=== PATIENT | male | born 1945 | race Caucasian/White ===

== ENCOUNTER 2022-09-09 12:32 | Emergency (ER) | payer MEDICARE, SELFPAY ==
[2022-09-09 12:40] VITALS: BP 153/76; PULSE 85; RESP 16; TEMP 36.7; O2SAT 97
[2022-09-09 13:18] VITALS: RESP 20
[2022-09-09 13:25] LABS: Abs Immature Grans 0.09 10^3/uL (0.0-0.06); Absolute Basophil Count 0.05 10^3/uL (0.0-0.2); Absolute Eosinophil Count 0.14 10^3/uL (0.0-0.7); Absolute Lymphocyte Count 2.57 10^3/uL (1.2-3.4); Absolute Monocyte Count 0.58 10^3/uL (0.1-0.8); Absolute Neutrophil Count 4.71 10^3/uL (1.2-6.7); Basophils % 0.6; Eosinophils % 1.7; HCT 37.3 % (40.0-50.0); HGB 11.9 g/dL (13.5-17.5); Immature Grans % 1.1; Lymphocytes % 31.6; MCH 26.4 pg (27.0-33.0); MCHC 31.9 % (32.0-36.0); MCV 83 fL (80-95); MPV 9.2 fL (8.0-11.0); Monocytes % 7.1; Neutrophils % 57.9; Platelet Count 364 10^3/uL (130-400); RDW 14.6 % (11.8-14.1); RDW-SD 43.9 fL; WBC 8.14 10^3/uL (4.4-10.8)
[2022-09-09 13:36] LABS: ALT 24 U/L (16-63); AST 14 U/L (15-37); Albumin 3.2 g/dL (3.4-5.0); Alkaline Phosphatase 65 U/L (46-116); Anion Gap 8.4 mmol/L (3-11); BUN 27 mg/dL (7-18); Bilirubin, Total 0.4 mg/dL (0.2-1.0); CO2 28.6 mmol/L (21.0-32.0); CREATININE 1.3 mg/dL (0.70-1.30); Calcium 9.2 mg/dL (8.5-10.1); Chloride 99 mmol/L (98-107); Estimated GFR 57.65 (mL/min/1.73m2); Glucose 133 mg/dL (74-106); Potassium 4.3 mmol/L (3.5-5.1); Sodium 136 mmol/L (136-145); Total Protein 8.1 g/dL (6.4-8.2)
--- NOTE | 2022-09-09 13:48 | ED.GENADUL_ITS ---
Discharge Plan Disposition Patient Disposition: Home Discharge Details Clinical Impression: Acute deep vein thrombosis (DVT) of right lower extremity Primary Care Provider: [place],Local ED Provider: Manish Oro Home Meds and New Rx's Prescriptions: No Action metformin 500 MG tablet 500 mg PO BID lisinopril 2.5 MG tablet 2.5 mg PO DAILY ciprofloxacin HCl 500 MG tablet 500 mg PO BID Qty: 14 0RF Eliquis 5 mg Tablet 5 mg PO BID aspirin [Aspir-81] 81 mg Tablet,Delayed Release (Dr/Ec) 81 mg PO DAILY PRN Discharge Instructions Instructions: Deep Vein Thrombosis (ED) Additional Instructions: Please increase your Eliquis to 10 mg twice daily until we can get the official ultrasound. At this time you have chosen to follow-up with [facility] which is appropriate as long as they can expedite ultrasound imaging. If you are unable to get an ultrasound by the tomorrow if you can be to the emergency department before 2 PM we will do our best to facilitate getting an emergent ultrasound here. You have any new or significant worsening of your symptoms feel free to return to the emergency department for reassessment otherwise follow-up with your primary care provider for recheck of symptoms preferably within the next 5 days. Referrals: [facility] [Outside] Medical Decision Making Patient presenting to the emergency department for chief complaint of right lower leg swelling for the last 2 days. Patient did have surgery 2 weeks ago and is on clindamycin. He does state he is due to see you the wound clinic tomorrow at [facility] but due to significant swelling is presenting to the emergency department. Patient states more pressure than pain and states this is due to the swelling. Patient denies all other symptoms including chest pain shortness of breath difficulty breathing. Patient does have history of A-fib, hypertension, diabetes. Patient is already on anticoagulant therapy but did have to stop for the surgery but started as recommended. Physical exam shows significant swelling to the right lower extremity with pitting edema from the knee down. This is unilateral with left lower extremity in walking boot but normal circumference per patient's report at baseline. I am concerned about potential DVT given recent surgery and patient off of his anticoagulant. Unfortunately we do not have ultrasound availability so plan will include to draw labs including D-dimer. At this time I do not feel that patient has cellulitis CHF or renal issue due to swelling being unilateral and no other associated symptoms. Review of patient's labs show a slight anemia with hemoglobin of 11.9 otherwise no infectious findings are noted on CBC, CMP shows elevated BUN of 27 glucose of 133 AST of 14 and albumin of 3.2. And an elevated D-dimer 1151. Discussed ultrasound imaging with patient and patient states due to having [facility] follow-up tomorrow he would prefer to have the ultrasound done there. Patient was en couraged if he is unable to receive ultrasound imaging there to return to the emergency department preferably before 2:00 tomorrow or during daytime hours to have ultrasound performed. As far as patient's Eliquis he is on 5 mg twice daily and we will have plan of additional coverage for patient with increasing patient's dose to 10 mg daily and obtaining official ultrasound. Patient is agreeable to this plan of care. After discussion of diagnosis and plan of care patient has no further needs, questions, or concerns and states clear understanding to return to the emergency department for any worsening symptoms. This documentation was generated using [employer] dictation system, please disregard any oddities of phrase or misspellings. Lab Data Lab results reviewed: Yes I reviewed the patient's lab results. HPI General Mode of arrival: ambulatory . Date/Time Provider Initiated Documentation: 09/09/22 12:49 . Limitations to Documentation: no limitations . Information obtained by: RN notes reviewed . History of Present Illness 76 year old M presents to the emergency department with the chief complaint of Right leg swelling, described as moderate, with intensity rated at 2. Quality is described as aching, and is localized to the right and lower extremity. Patient reports no radiation. Patient started experiencing this day(s) (2) and it has been constant. No relieving factors improve symptom(s), No exacerbating factors reported . Patient notes no other symptoms.. Patient did receive the following treatments prior to arrival, none Related Data Home Medications Medication Instructions Recorded Confirmed ciprofloxacin HCl 500 mg tablet 500 mg PO BID #14 tabs 10/14/12 lisinopril 2.5 mg tablet 2.5 mg PO DAILY 10/14/12 10/14/12 metformin 500 mg tablet 500 mg PO BID 10/14/12 10/14/12 apixaban 5 mg tablet (Eliquis) 5 mg PO BID 09/09/22 09/09/22 aspirin 81 mg tablet,delayed 81 mg PO DAILY PRN 09/09/22 09/09/22 release Previous Rx's Medication Instructions Recorded ciprofloxacin HCl 500 mg tablet 500 mg PO BID #14 tabs 10/14/12 Allergies Allergy/AdvReac Type Severity Reaction Status Date / Time ether Allergy Unknown Anaphylaxsi Unverified 10/14/12 10:30 s Penicillins Allergy Unknown Unverified 10/14/12 10:30 General Stated Complaint: GenMedical NASREEN: 3 Review of Systems Constitutional Constitutional: Denies chills and Denies fever(s) Cardiovascular Cardiovascular: Denies chest pain, Denies irregular heart rhythm, Denies dyspnea and Denies dyspnea on exertion Respiratory Respiratory: Denies dyspnea and Denies dyspnea on exertion Gastrointestinal Gastrointestinal: Denies abdominal pain Genitourinary Genitourinary: Denies oliguria Musculoskeletal Musculoskeletal: Reports as per HPI and Reports other (Right lower leg swelling) Integumentary/Breasts Skin/Breast: Reports skin swelling PFSH All Active Problems (Updated 09/09/22 @ 14:18 by Manish Oro NP) Acute deep vein thrombosis (DVT) of right lower extremity (Acute) A-fib (Chronic) Hypertension (Chronic) Diabetes (Chronic) Social History Smoking/Tobacco Use Status: Never Smoking risk assessment performed?: Yes Substance use type: marijuana Do you feel safe at home: Yes Do you feel safe in your relationship?: Yes Exam Const General: cooperative, no acute distress and not ill appearing Orientation: alert, awake and oriented x3 Resp Effort & Inspection: normal respiratory effort, able to speak in complete sentences and no respiratory distress Auscultation: clear to auscultation bilaterally Cardio Rate: regular rate Rhythm: regular rhythm Heart Sounds: S1 normal and S2 normal Skin General skin exam: no rashes or lesions noted Neuro General: patient alert, patient awake, patient oriented x3, moves all extremities and no focal motor deficits Sensory Exam: no sensory deficits noted Extrem General: edema Laterality: right (2+ pitting ) Right lower extremity: lower leg Details: tenderness and pitting edema Details: 2+; no erythema, no ecchymosis and no crepitus, ankle Details: edema and foot Details: edema and vascular exam Details: dorsalis pedis pulse present and normal capillary refill; no abrasion and no laceration Course Vital Signs Vital signs: Vital Signs Temperature 36.7 C 09/09/22 12:40 Pulse 85 09/09/22 12:40 Respiratory Rate 16 09/09/22 12:40 Blood Pressure 153/76 H 09/09/22 12:40 Pulse Oximetry 97 09/09/22 12:40 Temperature 36.7 C 09/09/22 12:40 Pulse 85 09/09/22 12:40 Respiratory Rate 20 09/09/22 13:18 Respiratory Effort Normal, Non-Labored 09/09/22 13:18 Respiratory Depth Normal 09/09/22 13:18 Respiratory Pattern Normal 09/09/22 13:18 Blood Pressure 153/76 H 09/09/22 12:40 Blood Pressure Position Sitting 09/09/22 12:40 Pulse Oximetry 97 09/09/22 12:40 Oxygen Delivery Method Room Air 09/09/22 12:40 Oxygen Flow Rate 0 09/09/22 12:40 Pain Level 2 09/09/22 12:40 Lab/Test Results Lab/Test Results: Laboratory Tests Range/Units 09/09/22 09/09/22 13:16 13:16 WBC (4.4-10.8) 10^3/uL 8.14 RBC (4.36-5.78) 10^6/uL 4.50 Hgb (13.5-17.5) g/dL 11.9 L Hct (40.0-50.0) % 37.3 L MCV (80-95) fL 83 MCH (27.0-33.0) pg 26.4 L MCHC (32.0-36.0) % 31.9 L RDW (11.8-14.1) % 14.6 H Plt Count (130-400) 10^3/uL 364 MPV (8.0-11.0) fL 9.2 Immature Gran % 1.1 Neutrophils % 57.9 Lymphocytes % 31.6 Monocytes % 7.1 Eosinophils % 1.7 Basophils % 0.6 Nucleated RBC % (0.0-0.3) % 0.0 Absolute Neutrophils (1.2-6.7) 10^3/uL 4.71 Absolute Lymphocytes (1.2-3.4) 10^3/uL 2.57 Absolute Monocytes (0.1-0.8) 10^3/uL 0.58 Absolute Eosinophils (0.0-0.7) 10^3/uL 0.14 Absolute Basophils (0.0-0.2) 10^3/uL 0.05 Sodium (136-145) mmol/L 136 Potassium (3.5-5.1) mmol/L 4.3 Chloride (98-107) mmol/L 99 Carbon Dioxide (21.0-32.0) mmol/L 28.6 Anion Gap (3-11) mmol/L 8.4 BUN (7-18) mg/dL 27 H Creatinine (0.70-1.30) mg/dL 1.3 Est GFR (CKD-EPI 2020) (mL/min/1.73m2) 57.65 Glucose (74-106) mg/dL 133 H Calcium (8.5-10.1) mg/dL 9.2 Total Bilirubin (0.2-1.0) mg/dL 0.4 AST (15-37) U/L 14 L ALT (16-63) U/L 24 Alkaline Phosphatase (46-116) U/L 65 Total Protein (6.4-8.2) g/dL 8.1 Albumin (3.4-5.0) g/dL 3.2 L PAWSS Have you Been Recently Intoxicated or Drunk Within the Last 30 days?: No Have you Ever Experienced Previous Episodes of Alcohol Withdrawal?: No Have you ever Experienced Withdrawal Seizures?: No Have you ever Experienced Delirium Tremens(DT)s?: No Have you ever undergone Alcohol Rehabilitation Treatment (i.e, inpt ot outpatient treatment programs)?: No Have you ever Experienced Blackouts?: No Have you ever Combined Alcohol with other Downers within the last 90 days?: No Have you ever Combined Alcohol with any other Substance of Abuse during the last 90 days?: No Positive Blood Alcohol level on Presentation? [PCS.BAL]: No Evidence of Increased Autonomic Activity (i.e. HR>120, tremor, sweating, agitation, nausea)?: No Result: 0
[2022-09-09 13:52] LABS: D-Dimer 1151 ng/mlFEU (<500)
[2022-09-09 14:38] VITALS: BP 130/64; PULSE 74; RESP 16; O2SAT 98
[2022-09-09] MEDS: Apixaban 5 MG TAB PO (14:40)
== END 2022-09-09 14:39 | disposition home or self-care (01) ==
PROVIDERS: Emergency Provider Nurse Practitioner Family
DX: I82.401 Acute embolism and thrombosis of unspecified deep veins of right lower extremity (principal); I10 Essential (primary) hypertension; E11.9 Type 2 diabetes mellitus without complications; I48.91 Unspecified atrial fibrillation; D64.9 Anemia, unspecified; R79.89 Other specified abnormal findings of blood chemistry; R79.1 Abnormal coagulation profile; Z79.01 Long term (current) use of anticoagulants
CPT/HCPCS: 80053; 99283; 85025; 85379; 99284

== ENCOUNTER 2022-09-10 14:09 | Emergency (ER) | payer MEDICARE, SELFPAY ==
--- NOTE | 2022-09-10 14:00 | DI.US_ITS ---
Exam(s) US LOWER EXTREMITY VENOUS RT EXAM: US LOWER EXTREMITY VENOUS RT CLINICAL HISTORY: pain, swelling TECHNIQUE: Grayscale, color, and doppler imaging of the deep venous system of the right lower extrem ity was performed. COMPARISON: No exams were available for comparison FINDINGS: There is no evidence of intraluminal thrombus and there is normal compression and augmentation demons trated within the common femoral vein, femoral vein, and popliteal vein. In the ipsilateral calf the interrogated veins also exhibit normal compression/ augmentation properti es. The ipsilateral saphenofemoral junction is patent. IMPRESSION: 1. No evidence of DVT in the right lower extremity. DATA REPOSITORY:
[2022-09-10 14:13] VITALS: BP 124/50; PULSE 75; RESP 18; TEMP 36.1; O2SAT 99
--- NOTE | 2022-09-10 14:23 | ED.GENADUL_ITS ---
Discharge Plan Disposition Patient Disposition: Home Discharge Details Clinical Impression: Peripheral edema Primary Care Provider: [place],Local ED Provider: Chelsey Greene Home Meds and New Rx's Prescriptions: New furosemide [Lasix] 20 mg tablet 20 mg PO DAILY Qty: 7 0RF Continued metformin 500 MG tablet 500 mg PO BID lisinopril 2.5 MG tablet 2.5 mg PO DAILY ciprofloxacin HCl 500 MG tablet 500 mg PO BID Qty: 14 0RF Eliquis 5 mg Tablet 10 mg PO BID aspirin 81 mg Tablet,Delayed Release (Dr/Ec) 81 mg PO DAILY PRN Discharge Instructions Additional Instructions: Return to taking her 5 mg of Eliquis daily Take the Lasix as prescribed Follow-up with your doctor for repeat ultrasound in 1 week with persistent swelling Return with spreading redness, fever, worsening pain, chest pain, shortness of breath Try to elevate your legs is much as possible and wear your compression stockings during the day Discharge Data Discharge Date/Time-TO BE ENTERED AT DEPARTURE: 09/10/22 16:24 Medical Decision Making <LC Montanez - Last Filed: 09/10/22 21:37> Patient is a pleasant 76-year-old gentleman with past medical history significant for atrial fibrillation, hypertension, diabetes, chronic current on left foot, presents today for reevaluation of right calf pain. Patient was seen here yesterday for the same. Yesterday there was concern for potential DVT and patient was advised to have ultrasound. Patient preferred to have this completed at [facility] today but was unable to have this completed secondary to scheduling today. Patient did increase his Eliquis from 5 mg twice daily to 10 mg twice daily. He has been taking this dosing as was recommended. He has not noted any change in his pain. States that pain is when he is ambulatory. States the pain does get better with rest. Indicates anterior aspect of the lower extremity as area of maximal discomfort. He denies any fevers or chills. Denies any shortness of breath or chest pain. On exam, patient appears nontoxic. Exam of the right lower extremity shows that it is enlarged compared to the contralateral side but both have 2+ pitting edema. I did review the labs from yesterday which was concerning for an elevated D-dimer of 1100. Also my differential would be CHF no associated lower extremity edema. He is not on any diuretics. We will obtain the ultrasound to have been previously recommended to evaluate for potential DVT. We also discussed obtaining labs, in particular BNP to evaluate this further. He would like to move forward with this rather than waiting until completion of the imaging study. At the end of my shift, care transition to Chelsey Greene PA-C, with labs and imaging pending. Patient hemodynamically stable and comfortable. <LC Ramos - Last Filed: 09/10/22 17:57> Patient is a pleasant 76-year-old gentleman with past medical history significant for atrial fibrillation, hypertension, diabetes, chronic current on left foot, presents today for reevaluation of right calf pain. Patient was seen here yesterday for the same. Yesterday there was concern for potential DVT and patient was advised to have ultrasound. Patient preferred to have this completed at [facility] today but was unable to have this completed secondary to scheduling today. Patient did increase his Eliquis from 5 mg twice daily to 10 mg twice daily. He has been taking this dosing as was recommended. He has not noted any change in his pain. States that pain is when he is ambulatory. States the pain does get better with rest. Indicates anterior aspect of the lower extremity as area of maximal discomfort. He denies any fevers or chills. Denies any shortness of breath or chest pain. On exam, patient appears nontoxic. Exam of the right lower extremity shows that it is enlarged compared to the contralateral side but both have 2+ pitting edema. I did review the labs from yesterday which was concerning for an elevated D-dimer of 1100. Also my differential would be CHF no associated lower extremity edema. He is not on any diuretics. We will obtain the ultrasound to have been previously recommended to evaluate for potential DVT. We also discussed obtaining labs, in particular BNP to evaluate this further. He would like to move forward with this rather than waiting until completion of the imaging study. At the end of my shift, care transition to Chelsey Greene PA-C, with labs and imaging pending. Patient hemodynamically stable and comfortable. LB: [facility] DVT extremity ultrasound does not show evidence of acute deep vein thrombosis Placed on 7 days of 20 mg of Lasix for significant peripheral edema without evidence of CHF, suspect peripheral vascular disease Repeat ultrasound in 1 week with persistent unilateral swelling recommended Emergent return with shortness of breath, chest discomfort, redness, or with any new or worsening complaints Discharged home in stable condition with stable vitals for prescription for 20 mg of Lasix Reviewed chemistry from yesterday without acute electrolyte abnormality HPI <LC Montanez - Last Filed: 09/10/22 21:37> General Date/Time Provider Initiated Documentation: 09/10/22 14:11 . Limitations to Documentation: no limitations . Information obtained by: patient, RN notes reviewed and old records reviewed . History of Present Illness 76 year old M presents to the emergency department with the chief complaint of right calf swelling, discomfort, described as moderate, Quality is described as aching, and is localized to the right and lower extremity. Patient reports no radiation. Patient started experiencing this day(s) and it has been constant. Immobilization improves symptom(s), Movement worsens symptoms (increased pain when standing on the leg) . Patient notes no other symptoms.. Patient did receive the following treatments prior to arrival, other (on Eliquis) Related Data Home Medications Medication Instructions Recorded Confirmed ciprofloxacin HCl 500 mg tablet 500 mg PO BID #14 tabs 10/14/12 09/10/22 lisinopril 2.5 mg tablet 2.5 mg PO DAILY 10/14/12 09/10/22 metformin 500 mg tablet 500 mg PO BID 10/14/12 09/10/22 apixaban 5 mg tablet (Eliquis) 10 mg PO BID 09/09/22 09/10/22 aspirin 81 mg tablet,delayed 81 mg PO DAILY PRN 09/09/22 09/10/22 release furosemide 20 mg tablet (Lasix) 20 mg PO DAILY #7 tabs 09/10/22 Previous Rx's Medication Instructions Recorded ciprofloxacin HCl 500 mg tablet 500 mg PO BID #14 tabs 10/14/12 furosemide 20 mg tablet (Lasix) 20 mg PO DAILY #7 tabs 09/10/22 Allergies Allergy/AdvReac Type Severity Reaction Status Date / Time ether Allergy Unknown Anaphylaxsi Unverified 09/10/22 14:12 s Penicillins Allergy Unknown Unverified 09/10/22 14:12 General Stated Complaint: Vascular NASREEN: 4 Review of Systems <LC Montanez - Last Filed: 09/10/22 21:37> Constitutional Constitutional: Reports as per HPI, Denies chills, Denies fever(s) and Denies weakness Cardiovascular Cardiovascular: Reports as per HPI, Denies chest pain and Denies dyspnea Respiratory Respiratory: Reports as per HPI, Denies cough and Denies dyspnea Musculoskeletal Musculoskeletal: Reports as per HPI and Denies tingling Integumentary/Breasts Skin/Breast: Reports as per HPI Neurologic Neurologic: Reports as per HPI, Denies tingling, Denies paresthesias and Denies weakness [facility] <LC Montanez - Last Filed: 09/10/22 21:37> All Active Problems (Updated 09/10/22 @ 16:12 by LC Ramos) Acute deep vein thrombosis (DVT) of right lower extremity (Acute) Peripheral edema (Acute) A-fib (Chronic) Hypertension (Chronic) Diabetes (Chronic) Social History Smoking/Tobacco Use Status: Never Smoking risk assessment performed?: Yes Substance use type: marijuana Do you feel safe at home: Yes Do you feel safe in your relationship?: Yes Exam <LC Montanez - Last Filed: 09/10/22 21:37> Const General: cooperative, healthy appearing, comfortable, no acute distress, well d eveloped and well groomed Nutritional Appearance: well nourished and overweight Orientation: alert and awake Resp Effort & Inspection: normal respiratory effort, able to speak in complete sentences and no respiratory distress Cardio Rate: regular rate Rhythm: regular rhythm Skin General skin exam: no rashes or lesions noted (wound on LLE was dressed/coverd by wound care at today) Lesions: no lesions Rashes: no rashes Trauma: no lacerations or abrasions Neuro General: patient alert and patient awake Cognition: normal cognition Speech: speech normal Gait: normal gait and gait assisted Method: other (cane) Motor: muscle tone normal throughout Sensory Exam: no sensory deficits noted Extrem General: capillary refill normal, no joint enlargement, calf tenderness on the right (pain primarily anterior), edema Laterality: bilateral (2+ pitting edema) and other (right calf 1inch larger in diameter compare to left) Course <LC Montanez - Last Filed: 09/10/22 21:37> Vital Signs Vital signs: Vital Signs Temperature 36.1 C L 09/10/22 14:13 Pulse 75 04/03/23 14:13 Respiratory Rate 18 09/10/22 14:13 Blood Pressure 124/50 L 09/10/22 14:13 Pulse Oximetry 99 09/10/22 14:13 Temperature 36.1 C L 09/10/22 14:13 Temperature Source Tympanic 09/10/22 14:13 Pulse 75 09/10/22 14:13 Respiratory Rate 18 09/10/22 14:13 Respiratory Effort Normal, Non-Labored 09/10/22 14:12 Blood Pressure 124/50 L 09/10/22 14:13 Pulse Oximetry 99 09/10/22 14:13 Oxygen Delivery Method Room Air 09/10/22 14:13 Oxygen Flow Rate 0 09/10/22 14:13 Sign Out <LC Montanez - Last Filed: 09/10/22 21:37> Sign Out Data: Sign Out Comment: Care transition to Chelsey Greene PA-C. Patient here with right calf pain, ultrasound for DVT pending as is BNP for possible CHF. Plan for discharged home. If DVT is present patient will need evaluation for optimal anticoagulation as he is already on 5 mg of Eliquis twice daily, increased yesterday by Bartolo Oro to 10 mg of Eliquis twice daily. If more CHF, would consider diuretic Last updated by Anusha Rebollar PA at 09/10/22 15:43 PAWSS <LC Montanez - Last Filed: 09/10/22 21:37> Have you Been Recently Intoxicated or Drunk Within the Last 30 days?: No Have you Ever Experienced Previous Episodes of Alcohol Withdrawal?: No Have you ever Experienced Withdrawal Seizures?: No Have you ever Experienced Delirium Tremens(DT)s?: No Have you ever undergone Alcohol Rehabilitation Treatment (i.e, inpt ot outpatient treatment programs)?: No Have you ever Experienced Blackouts?: No Have you ever Combined Alcohol with other Downers within the last 90 days?: No Have you ever Combined Alcohol with any other Substance of Abuse during the last 90 days?: No Positive Blood Alcohol level on Presentation? [PCS.BAL]: No Evidence of Increased Autonomic Activity (i.e. HR>120, tremor, sweating, agitation, nausea)?: No Result: 0 <LC Ramos - Last Filed: 09/10/22 17:57> Result: 0
[2022-09-10 15:40] LABS: INR 1.1 (0.9-1.1); PTT Activated 30.5 sec (21.5-31.9); Prothrombin Time 11.3 sec (9.3-11.0)
[2022-09-10 15:48] LABS: NT-proBNP 38 pg/mL (<300)
[2022-09-10 16:21] VITALS: BP 130/76; PULSE 77; RESP 16; TEMP 36.7; O2SAT 99
== END 2022-09-10 16:24 | disposition home or self-care (01) ==
PROVIDERS: Physician Assistant; Emergency Provider Physician Assistant
DX: R60.0 Localized edema (principal); I10 Essential (primary) hypertension; E11.9 Type 2 diabetes mellitus without complications; I48.91 Unspecified atrial fibrillation; R79.1 Abnormal coagulation profile; Z79.01 Long term (current) use of anticoagulants; R06.02 Shortness of breath; R07.89 Other chest pain; R50.9 Fever, unspecified
CPT/HCPCS: 36415; 99284; 83880; 85610; 85730; 93971

== ENCOUNTER 2022-11-07 03:16 | Outpatient (RCR) | payer MEDICARE, SELFPAY ==
[2022-10-12] MEDS: cefTRIAXone 2 GM/50 ML BAG IVPB (12:41)
[2022-10-12] MEDS: Normal Saline Flush 10 ML SYR IVP (12:43)
[2022-10-13] MEDS: cefTRIAXone 2 GM/50 ML BAG IVPB (12:29)
[2022-10-13] MEDS: Normal Saline Flush 10 ML SYR IVP (12:30)
[2022-10-14] MEDS: Normal Saline Flush 10 ML SYR IVP (12:25)
[2022-10-14] MEDS: cefTRIAXone 2 GM/50 ML BAG IVPB (12:25)
[2022-10-15] MEDS: cefTRIAXone 2 GM/50 ML BAG IVPB (12:44)
[2022-10-15] MEDS: Normal Saline Flush 10 ML SYR IVP (12:45)
[2022-10-15 13:17] LABS: Abs Immature Grans 0.07 10^3/uL (0.0-0.06); Absolute Basophil Count 0.08 10^3/uL (0.0-0.2); Absolute Eosinophil Count 0.15 10^3/uL (0.0-0.7); Absolute Lymphocyte Count 3.12 10^3/uL (1.2-3.4); Absolute Monocyte Count 0.72 10^3/uL (0.1-0.8); Absolute Neutrophil Count 5.67 10^3/uL (1.2-6.7); Basophils % 0.8; Eosinophils % 1.5; HCT 36.4 % (40.0-50.0); HGB 11.6 g/dL (13.5-17.5); Immature Grans % 0.7; Lymphocytes % 31.8; MCH 26.1 pg (27.0-33.0); MCHC 31.9 % (32.0-36.0); MCV 82 fL (80-95); MPV 9.9 fL (8.0-11.0); Monocytes % 7.3; Neutrophils % 57.9; Platelet Count 409 10^3/uL (130-400); RBC 4.44 10^6/uL (4.36-5.78); RDW 14.5 % (11.8-14.1); RDW-SD 43.3 fL; WBC 9.81 10^3/uL (4.4-10.8)
[2022-10-15 13:33] LABS: ALT 23 U/L (16-63); AST 12 U/L (15-37); Albumin 2.9 g/dL (3.4-5.0); Alkaline Phosphatase 67 U/L (46-116); Anion Gap 8.1 mmol/L (3-11); BUN 36 mg/dL (7-18); Bilirubin, Total 0.3 mg/dL (0.2-1.0); C-Reactive Protein 4.41 mg/dL (0.0-0.3); CO2 25.9 mmol/L (21.0-32.0); CREATININE 1.5 mg/dL (0.70-1.30); Calcium 8.9 mg/dL (8.5-10.1); Chloride 101 mmol/L (98-107); Estimated GFR 48.25 (mL/min/1.73m2); Glucose 145 mg/dL (74-106); Sodium 135 mmol/L (136-145); Total Protein 8.1 g/dL (6.4-8.2)
[2022-10-16] MEDS: Normal Saline Flush 10 ML SYR IVP (12:36)
[2022-10-16] MEDS: cefTRIAXone 2 GM/50 ML BAG IVPB (12:36)
[2022-10-17] MEDS: cefTRIAXone 2 GM/50 ML BAG IVPB (12:41)
[2022-10-17] MEDS: Normal Saline Flush 10 ML SYR IVP (12:47)
[2022-10-18] MEDS: cefTRIAXone 2 GM/50 ML BAG IVPB (12:45)
[2022-10-18] MEDS: Normal Saline Flush 10 ML SYR IVP (12:45)
[2022-10-19] MEDS: cefTRIAXone 2 GM/50 ML BAG IVPB (12:40)
[2022-10-19] MEDS: Normal Saline Flush 10 ML SYR IVP (12:41)
[2022-10-20] MEDS: cefTRIAXone 2 GM/50 ML BAG IVPB (12:52)
[2022-10-20] MEDS: Normal Saline Flush 10 ML SYR IVP (12:53)
[2022-10-21] MEDS: cefTRIAXone 2 GM/50 ML BAG IVPB (12:58)
[2022-10-21] MEDS: Normal Saline Flush 10 ML SYR IVP (12:59)
[2022-10-22] MEDS: cefTRIAXone 2 GM/50 ML BAG IVPB (12:54)
[2022-10-22] MEDS: Normal Saline Flush 10 ML SYR IVP (12:55)
[2022-10-22 13:08] LABS: Abs Immature Grans 0.07 10^3/uL (0.0-0.06); Absolute Basophil Count 0.07 10^3/uL (0.0-0.2); Absolute Eosinophil Count 0.17 10^3/uL (0.0-0.7); Absolute Lymphocyte Count 2.66 10^3/uL (1.2-3.4); Absolute Monocyte Count 0.59 10^3/uL (0.1-0.8); Absolute Neutrophil Count 4.41 10^3/uL (1.2-6.7); Basophils % 0.9; Eosinophils % 2.1; HCT 35.5 % (40.0-50.0); HGB 11.7 g/dL (13.5-17.5); Immature Grans % 0.9; Lymphocytes % 33.4; MCH 26.8 pg (27.0-33.0); MCV 81 fL (80-95); MPV 9.1 fL (8.0-11.0); Monocytes % 7.4; Neutrophils % 55.3; Platelet Count 355 10^3/uL (130-400); RBC 4.36 10^6/uL (4.36-5.78); RDW 14.3 % (11.8-14.1); WBC 7.97 10^3/uL (4.4-10.8)
[2022-10-22 13:23] LABS: ALT 23 U/L (16-63); AST 19 U/L (15-37); Albumin 3.1 g/dL (3.4-5.0); Alkaline Phosphatase 80 U/L (46-116); BUN 38 mg/dL (7-18); Bilirubin, Total 0.3 mg/dL (0.2-1.0); C-Reactive Protein 1.11 mg/dL (0.0-0.3); CREATININE 1.4 mg/dL (0.70-1.30); Calcium 9.5 mg/dL (8.5-10.1); Chloride 102 mmol/L (98-107); Estimated GFR 52.41 (mL/min/1.73m2); Glucose 179 mg/dL (74-106); Sodium 137 mmol/L (136-145)
[2022-10-23] MEDS: cefTRIAXone 2 GM/50 ML BAG IVPB (12:26)
[2022-10-23] MEDS: Normal Saline Flush 10 ML SYR IVP (12:27)
[2022-10-24] MEDS: cefTRIAXone 2 GM/50 ML BAG IVPB (12:48)
[2022-10-24] MEDS: Normal Saline Flush 10 ML SYR IVP (12:49)
[2022-10-25] MEDS: Normal Saline Flush 10 ML SYR IVP (12:39)
[2022-10-25] MEDS: cefTRIAXone 2 GM/50 ML BAG IVPB (12:39)
[2022-10-26] MEDS: cefTRIAXone 2 GM/50 ML BAG IVPB (12:49)
[2022-10-26] MEDS: Normal Saline Flush 10 ML SYR IVP (12:50)
[2022-10-27] MEDS: cefTRIAXone 2 GM/50 ML BAG IVPB (12:45)
[2022-10-28] MEDS: Normal Saline Flush 10 ML SYR IVP (12:55)
[2022-10-28] MEDS: cefTRIAXone 2 GM/50 ML BAG IVPB (12:55)
[2022-10-29] MEDS: cefTRIAXone 2 GM/50 ML BAG IVPB (12:40)
[2022-10-29] MEDS: Normal Saline Flush 10 ML SYR IVP (12:40)
[2022-10-29 12:48] LABS: Abs Immature Grans 0.06 10^3/uL (0.0-0.06); Absolute Basophil Count 0.06 10^3/uL (0.0-0.2); Absolute Lymphocyte Count 2.46 10^3/uL (1.2-3.4); Absolute Monocyte Count 0.54 10^3/uL (0.1-0.8); Absolute Neutrophil Count 4.01 10^3/uL (1.2-6.7); Basophils % 0.8; Eosinophils % 2.7; HCT 36.1 % (40.0-50.0); HGB 11.7 g/dL (13.5-17.5); Immature Grans % 0.8; Lymphocytes % 33.6; MCH 26.8 pg (27.0-33.0); MCHC 32.4 % (32.0-36.0); MCV 83 fL (80-95); MPV 9.4 fL (8.0-11.0); Monocytes % 7.4; Neutrophils % 54.7; Platelet Count 324 10^3/uL (130-400); RBC 4.36 10^6/uL (4.36-5.78); RDW 14.7 % (11.8-14.1); RDW-SD 44.5 fL; WBC 7.33 10^3/uL (4.4-10.8)
[2022-10-29 13:37] LABS: ALT 26 U/L (16-63); AST 20 U/L (15-37); Albumin 3.4 g/dL (3.4-5.0); Alkaline Phosphatase 66 U/L (46-116); Anion Gap 9.6 mmol/L (3-11); BUN 43 mg/dL (7-18); Bilirubin, Total 0.3 mg/dL (0.2-1.0); C-Reactive Protein 0.73 mg/dL (0.0-0.3); CO2 26.4 mmol/L (21.0-32.0); CREATININE 1.4 mg/dL (0.70-1.30); Calcium 9.5 mg/dL (8.5-10.1); Chloride 101 mmol/L (98-107); Estimated GFR 52.41 (mL/min/1.73m2); Glucose 135 mg/dL (74-106); Potassium 4.3 mmol/L (3.5-5.1); Sodium 137 mmol/L (136-145); Total Protein 8.1 g/dL (6.4-8.2)
[2022-10-30] MEDS: cefTRIAXone 2 GM/50 ML BAG IVPB (12:54)
[2022-10-30] MEDS: Normal Saline Flush 10 ML SYR IVP (12:55)
[2022-10-31] MEDS: cefTRIAXone 2 GM/50 ML BAG IVPB (12:50)
[2022-10-31] MEDS: Normal Saline Flush 10 ML SYR IVP (12:54)
[2022-11-01] MEDS: Normal Saline Flush 10 ML SYR IVP (12:47)
[2022-11-01] MEDS: cefTRIAXone 2 GM/50 ML BAG IVPB (12:47)
[2022-11-02] MEDS: cefTRIAXone 2 GM/50 ML BAG IVPB (12:37)
[2022-11-02] MEDS: Normal Saline Flush 10 ML SYR IVP (12:37)
[2022-11-03] MEDS: Normal Saline Flush 10 ML SYR IVP (12:39)
[2022-11-03] MEDS: cefTRIAXone 2 GM/50 ML BAG IVPB (12:40)
[2022-11-04] MEDS: Normal Saline Flush 10 ML SYR IVP (12:27)
[2022-11-04] MEDS: cefTRIAXone 2 GM/50 ML BAG IVPB (12:27)
[2022-11-05] MEDS: Normal Saline Flush 10 ML SYR IVP (12:38)
[2022-11-05] MEDS: cefTRIAXone 2 GM/50 ML BAG IVPB (12:38)
[2022-11-05 13:13] LABS: Abs Immature Grans 0.02 10^3/uL (0.0-0.06); Absolute Basophil Count 0.04 10^3/uL (0.0-0.2); Absolute Eosinophil Count 0.15 10^3/uL (0.0-0.7); Absolute Monocyte Count 0.44 10^3/uL (0.1-0.8); Absolute Neutrophil Count 2.47 10^3/uL (1.2-6.7); Basophils % 0.8; Eosinophils % 2.9; HCT 35.4 % (40.0-50.0); HGB 11.4 g/dL (13.5-17.5); Immature Grans % 0.4; Lymphocytes % 39.1; MCH 26.6 pg (27.0-33.0); MCHC 32.2 % (32.0-36.0); MCV 83 fL (80-95); MPV 9.8 fL (8.0-11.0); Monocytes % 8.6; Neutrophils % 48.2; Platelet Count 293 10^3/uL (130-400); RBC 4.29 10^6/uL (4.36-5.78); RDW 15.3 % (11.8-14.1); RDW-SD 45.9 fL; WBC 5.12 10^3/uL (4.4-10.8)
[2022-11-05 13:30] LABS: ALT 23 U/L (16-63); AST 19 U/L (15-37); Albumin 3.4 g/dL (3.4-5.0); Alkaline Phosphatase 66 U/L (46-116); Anion Gap 8.7 mmol/L (3-11); BUN 43 mg/dL (7-18); Bilirubin, Total 0.5 mg/dL (0.2-1.0); C-Reactive Protein 0.36 mg/dL (0.0-0.3); CO2 28.3 mmol/L (21.0-32.0); CREATININE 1.6 mg/dL (0.70-1.30); Calcium 8.7 mg/dL (8.5-10.1); Chloride 101 mmol/L (98-107); Estimated GFR 44.65 (mL/min/1.73m2); Glucose 181 mg/dL (74-106); Sodium 138 mmol/L (136-145); Total Protein 7.8 g/dL (6.4-8.2)
[2022-11-06] MEDS: cefTRIAXone 2 GM/50 ML BAG IVPB (12:41)
[2022-11-06] MEDS: Normal Saline Flush 10 ML SYR IVP (12:44)
[2022-11-07] MEDS: Normal Saline Flush 10 ML SYR IVP (12:48)
[2022-11-07] MEDS: cefTRIAXone 2 GM/50 ML BAG IVPB (12:48)
== END 2022-11-07 23:59 | disposition home or self-care (01) ==
LOC: INF 03:16
PROVIDERS: Internal Medicine Infectious Disease; Visit Provider Family Medicine
DX: E11.69 Type 2 diabetes mellitus with other specified complication (principal); M86.9 Osteomyelitis, unspecified; Z45.2 Encounter for adjustment and management of vascular access device
CPT/HCPCS: 36592; 80053; 96365; 85025; 86140

== ENCOUNTER 2022-11-23 13:00 | Outpatient (RCR) | payer MEDICARE, SELFPAY ==
[2022-11-08] MEDS: cefTRIAXone 2 GM/50 ML BAG IVPB (12:47)
[2022-11-08] MEDS: Normal Saline Flush 10 ML SYR IVP (12:47)
[2022-11-09] MEDS: cefTRIAXone 2 GM/50 ML BAG IVPB (12:47)
[2022-11-09] MEDS: Normal Saline Flush 10 ML SYR IVP (12:48)
[2022-11-10] MEDS: cefTRIAXone 2 GM/50 ML BAG IVPB (13:04)
[2022-11-10] MEDS: Normal Saline Flush 10 ML SYR IVP (13:04)
[2022-11-11] MEDS: cefTRIAXone 2 GM/50 ML BAG IVPB (12:34)
[2022-11-11] MEDS: Normal Saline Flush 10 ML SYR IVP (12:36)
[2022-11-12] MEDS: cefTRIAXone 2 GM/50 ML BAG IVPB (12:44)
[2022-11-12] MEDS: Normal Saline Flush 10 ML SYR IVP (12:45)
[2022-11-12 12:56] LABS: Abs Immature Grans 0.02 10^3/uL (0.0-0.06); Absolute Basophil Count 0.04 10^3/uL (0.0-0.2); Absolute Eosinophil Count 0.09 10^3/uL (0.0-0.7); Absolute Monocyte Count 0.72 10^3/uL (0.1-0.8); Absolute Neutrophil Count 2.31 10^3/uL (1.2-6.7); Basophils % 0.7; Eosinophils % 1.5; HCT 38.3 % (40.0-50.0); HGB 12.5 g/dL (13.5-17.5); Immature Grans % 0.3; Lymphocytes % 45.9; MCHC 32.6 % (32.0-36.0); MCV 83 fL (80-95); MPV 9.3 fL (8.0-11.0); Monocytes % 12.2; Neutrophils % 39.4; Platelet Count 316 10^3/uL (130-400); RBC 4.63 10^6/uL (4.36-5.78); RDW 15.4 % (11.8-14.1); RDW-SD 46.5 fL; WBC 5.88 10^3/uL (4.4-10.8)
[2022-11-12 13:11] LABS: ALT 24 U/L (16-63); AST 15 U/L (15-37); Albumin 3.7 g/dL (3.4-5.0); Alkaline Phosphatase 70 U/L (46-116); Anion Gap 6.6 mmol/L (3-11); BUN 38 mg/dL (7-18); Bilirubin, Total 0.5 mg/dL (0.2-1.0); C-Reactive Protein 0.29 mg/dL (0.0-0.3); CO2 27.4 mmol/L (21.0-32.0); CREATININE 1.5 mg/dL (0.70-1.30); Calcium 9.4 mg/dL (8.5-10.1); Chloride 99 mmol/L (98-107); Estimated GFR 48.25 (mL/min/1.73m2); Glucose 126 mg/dL (74-106); Sodium 133 mmol/L (136-145); Total Protein 8.4 g/dL (6.4-8.2)
[2022-11-13] MEDS: Normal Saline Flush 10 ML SYR IVP (12:45)
[2022-11-13] MEDS: cefTRIAXone 2 GM/50 ML BAG IVPB (12:45)
[2022-11-14] MEDS: cefTRIAXone 2 GM/50 ML BAG IVPB (12:42)
[2022-11-14] MEDS: Normal Saline Flush 10 ML SYR IVP (12:43)
[2022-11-15] MEDS: cefTRIAXone 2 GM/50 ML BAG IVPB (12:37)
[2022-11-15] MEDS: Normal Saline Flush 10 ML SYR IVP (12:38)
[2022-11-16] MEDS: Normal Saline Flush 10 ML SYR IVP (12:50)
[2022-11-16] MEDS: cefTRIAXone 2 GM/50 ML BAG IVPB (12:50)
[2022-11-17] MEDS: cefTRIAXone 2 GM/50 ML BAG IVPB (12:35)
[2022-11-17] MEDS: Normal Saline Flush 10 ML SYR IVP (13:36)
[2022-11-18] MEDS: cefTRIAXone 2 GM/50 ML BAG IVPB (12:56)
[2022-11-18] MEDS: Normal Saline Flush 10 ML SYR IVP (12:56)
[2022-11-19] MEDS: Normal Saline Flush 10 ML SYR IVP (12:50)
[2022-11-19] MEDS: cefTRIAXone 2 GM/50 ML BAG IVPB (12:50)
[2022-11-19 13:36] LABS: Absolute Basophil Count 0.02 10^3/uL (0.0-0.2); Absolute Lymphocyte Count 2.69 10^3/uL (1.2-3.4); Absolute Monocyte Count 0.63 10^3/uL (0.1-0.8); Absolute Neutrophil Count 1.04 10^3/uL (1.2-6.7); Basophils % 0.5; HCT 36.6 % (40.0-50.0); HGB 11.8 g/dL (13.5-17.5); Lymphocytes % 61.4; MCH 26.5 pg (27.0-33.0); MCHC 32.2 % (32.0-36.0); MCV 82 fL (80-95); MPV 9.7 fL (8.0-11.0); Monocytes % 14.4; Neutrophils % 23.7; Platelet Count 306 10^3/uL (130-400); RBC 4.45 10^6/uL (4.36-5.78); RDW 15.1 % (11.8-14.1); RDW-SD 45.6 fL; WBC 4.38 10^3/uL (4.4-10.8)
[2022-11-19 13:50] LABS: ALT 24 U/L (16-63); AST 16 U/L (15-37); Albumin 3.6 g/dL (3.4-5.0); Alkaline Phosphatase 64 U/L (46-116); Anion Gap 6.8 mmol/L (3-11); BUN 33 mg/dL (7-18); Bilirubin, Total 0.4 mg/dL (0.2-1.0); CO2 28.2 mmol/L (21.0-32.0); CREATININE 1.4 mg/dL (0.70-1.30); Calcium 9.1 mg/dL (8.5-10.1); Chloride 100 mmol/L (98-107); Estimated GFR 52.41 (mL/min/1.73m2); Glucose 136 mg/dL (74-106); Potassium 4.2 mmol/L (3.5-5.1); Sodium 135 mmol/L (136-145); Total Protein 7.9 g/dL (6.4-8.2)
[2022-11-20] MEDS: cefTRIAXone 2 GM/50 ML BAG IVPB (12:47)
[2022-11-20] MEDS: Normal Saline Flush 10 ML SYR IVP (12:47)
[2022-11-21] MEDS: Normal Saline Flush 10 ML SYR IVP (12:53)
[2022-11-21] MEDS: cefTRIAXone 2 GM/50 ML BAG IVPB (12:53)
[2022-11-22] MEDS: cefTRIAXone 2 GM/50 ML BAG IVPB (06:55)
[2022-11-22] MEDS: Normal Saline Flush 10 ML SYR IVP (07:25)
[2022-11-23] MEDS: cefTRIAXone 2 GM/50 ML BAG IVPB (12:43)
[2022-11-23] MEDS: Bacitracin 1 PACKET (13:20)
== END 2022-12-07 23:59 | disposition home or self-care (01) ==
LOC: INF 13:00
PROVIDERS: Visit Provider Family Medicine
DX: E11.69 Type 2 diabetes mellitus with other specified complication (principal); M86.9 Osteomyelitis, unspecified
CPT/HCPCS: 36592; 80053; 96365; 85025; 86140

== ENCOUNTER → 2023-06-06 00:34 | Outpatient (CLI) | payer MEDICARE, SELFPAY ==
--- NOTE | 2023-06-06 | DI.CT_ITS ---
Exam(s) CT ABDOMEN PELVIS W EXAM: CT ABDOMEN PELVIS CLINICAL HISTORY: UPPER ABD PAIN R10.10. TECHNIQUE: Imaging Protocol: Axial computed tomography images with coronal and sagittal reformatted images were created and reviewed CONTRAST MATERIAL: Intravenous: Omnipaque 350 Contrast volume:100 ml Oral: yes COMPARISON: No exams were available for comparison FINDINGS: ABDOMEN and PELVIS: Lung Bases: No acute findings. Liver: Normal density. No measurable mass. Gallbladder and biliary tract: No radiodense calculus or dilation. Pancreas: Normal density. No abnormal calcifications or inflammatory process. No evidence of mass. Spleen: Normal. Kidneys: Normal size, contour and axis. No radiodense stones. No obstructive uropathy. No suspicious masses seen. Adrenal glands: No masses seen. Vasculature: Abdominal aorta non-dilated. Severe atherosclerotic changes Soft tissues: Surgical clips and some scarring lower left anterior abdominal wall. No hernia. Bladder: No gross wall thickening. No calculi.No focal mass. Bowel: No obstruction. No bowel wall thickening. Appendix normal. Peritoneal cavity: No ascites. No focal collection or mesenteric inflammatory response. Bones: Severe degenerative changes in the spine. Moderate T12 compression fracture. Reproductive organs: Within normal limits. Lymph nodes: Unremarkable. IMPRESSION:: No acute abnormality in the abdomen or pelvis. RADIATION DOSE DELIVERED: Total DLP DATA REPOSITORY: All CT scans at this facility are submitted to the National Radiology Data Registry (NRDR) Dose Index Registry (DIR) with the [employer] (A[employer]). RADIATION OPTIMIZATION: All CT scans at this facility use at least one of these dose optimization te chniques: automated exposure control; mA and/or kV adjustment per patient size (includes targeted exa ms where dose is matched to clinical indication); or iterative reconstruction.
[2023-06-06 13:07] LABS: CREATININE 1.5 mg/dL (0.70-1.30); Estimated GFR 48.25 (mL/min/1.73m2)
[2023-06-06] MEDS: Omnipaque 350 MG/ML 100 ML BTL IJ (14:16)
[2023-06-06] MEDS: Normal Saline - Diluent 50 ML VIAL IJ (14:17)
== END ==
PROVIDERS: Visit Provider Student in an Organized Health Care Education/Training Program
DX: R10.10 Upper abdominal pain, unspecified (principal)
CPT/HCPCS: 74177; 82565; J3490

== ENCOUNTER 2023-07-04 03:26 | Outpatient (RCR) | payer MEDICARE, SELFPAY ==
[2023-06-28] MEDS: IRON SUCROSE COMPLEX 200 MG in Normal Saline 100 ML 220 MG IVPB (10:14)
[2023-06-28] MEDS: Normal Saline Flush 10 ML SYR IVP (10:18)
[2023-07-04] MEDS: IRON SUCROSE COMPLEX 200 MG in Normal Saline 100 ML 220 MG IVPB (10:14)
[2023-07-04] MEDS: Normal Saline Flush 10 ML SYR IVP (10:14)
== END 2023-07-10 23:59 | disposition home or self-care (01) ==
LOC: INF 03:26
PROVIDERS: Visit Provider Internal Medicine
DX: D64.9 Anemia, unspecified
CPT/HCPCS: 96365; J1756

== ENCOUNTER 2023-07-11 04:06 | Outpatient (RCR) | payer MEDICARE, SELFPAY ==
[2023-07-11] MEDS: IRON SUCROSE COMPLEX 200 MG in Normal Saline 100 ML 440 MG IVPB (10:08)
[2023-07-11] MEDS: Normal Saline Flush 10 ML SYR IVP (10:09)
== END 2023-08-08 23:59 | disposition home or self-care (01) ==
LOC: INF 04:06
PROVIDERS: Visit Provider Internal Medicine
DX: E11.69 Type 2 diabetes mellitus with other specified complication (principal); M86.9 Osteomyelitis, unspecified
CPT/HCPCS: 96365; J1756

== ENCOUNTER 2023-11-19 08:37 | Outpatient (CLI) | payer MEDICARE, SELFPAY ==
--- NOTE | 2023-11-19 08:30 | RT.EKG_ITS ---
APPROVED REPORT Exam: Resting ECG Reason for Exam: afib Patient Location: O HR:138 bpm ECG Measurements Heart Rate 138 AXIS TX [id number] P [id number] QRSd 151 QRS -68 QT 339 T -66 QTc 514 Conclusion Atrial fibrillation...? atrial activity Paired ventricular premature complexes...sequence of 2 V complexes Right bundle branch block...QRSd>120, terminal axis(90,270) Baseline wander in lead(s) I,II,III,aVR,aVL,V3,V4,V5
== END 2023-11-19 08:38 | disposition home or self-care (01) ==
LOC: DI.CARD 08:37
PROVIDERS: Visit Provider Internal Medicine Cardiovascular Disease
DX: I48.91 Unspecified atrial fibrillation (principal)
CPT/HCPCS: 93010

== ENCOUNTER → 2023-11-19 09:41 | Outpatient (BNVA) | payer MEDICARE, SELFPAY | PROVIDERS: Visit Provider Internal Medicine Cardiovascular Disease | DX: I48.3 Typical atrial flutter (principal); I10 Essential (primary) hypertension; I48.91 Unspecified atrial fibrillation | CPT/HCPCS: 93005; 99214 ==

== ENCOUNTER → 2023-12-06 13:15 | Outpatient (BNVA) | payer MEDICARE, SELFPAY | PROVIDERS: Visit Provider Internal Medicine Cardiovascular Disease | DX: I48.3 Typical atrial flutter (principal) | CPT/HCPCS: 99212 ==

== ENCOUNTER 2024-03-05 02:34 | Outpatient (RCR) | payer MEDICARE, SELFPAY ==
[2024-02-27] MEDS: IRON SUCROSE COMPLEX 300 MG in Normal Saline 250 ML 176.667 MG IVPB (10:01)
[2024-02-27] MEDS: Normal Saline Flush 10 ML SYR IVP (10:01)
[2024-03-05] MEDS: IRON SUCROSE COMPLEX 300 MG in Normal Saline 250 ML 176.667 MG IVPB (09:55)
[2024-03-05] MEDS: Normal Saline Flush 10 ML SYR IVP (09:55)
== END 2024-03-09 23:59 | disposition home or self-care (01) ==
LOC: INF 02:34
PROVIDERS: Visit Provider Family Medicine
DX: N18.32 Chronic kidney disease, stage 3b (principal); D63.1 Anemia in chronic kidney disease; D50.9 Iron deficiency anemia, unspecified
CPT/HCPCS: 96365; 96366; J1756

== ENCOUNTER 2024-03-12 01:42 | Outpatient (RCR) | payer MEDICARE, SELFPAY ==
[2024-03-12] MEDS: IRON SUCROSE COMPLEX 300 MG in Normal Saline 250 ML 176.667 MG IVPB (10:43)
[2024-03-12] MEDS: Normal Saline Flush 10 ML SYR IVP (12:26)
== END 2024-04-09 23:59 | disposition home or self-care (01) ==
LOC: INF 01:42
PROVIDERS: Visit Provider Family Medicine
DX: N18.1 Chronic kidney disease, stage 1 (principal); D63.1 Anemia in chronic kidney disease; D50.9 Iron deficiency anemia, unspecified
CPT/HCPCS: 96365; 96366; J1756

== ENCOUNTER → 2024-04-06 13:11 | Outpatient (BNVA) | payer MEDICARE, SELFPAY | PROVIDERS: Visit Provider Internal Medicine Cardiovascular Disease | DX: I48.3 Typical atrial flutter (principal) | CPT/HCPCS: 99213 ==

== ENCOUNTER 2024-07-13 12:34 | Emergency (ER) | payer MEDICARE, SELFPAY ==
[2024-07-13 12:35] VITALS: BP 159/75; PULSE 85; RESP 16; TEMP 36.9; O2SAT 96
--- NOTE | 2024-07-13 12:38 | ED.GENADUL_ITS ---
Discharge Plan Discharge Details Chief Complaint: Cellulitis Primary Care Provider: Unknown,Unknown ED Provider: Abner Styles [place] Meds and New Rx's Prescriptions: No Action losartan 25 mg tablet 25 mg PO DAILY amlodipine 5 mg tablet 5 mg PO DAILY furosemide 20 mg tablet 20 mg PO DAILY Jardiance 10 mg tablet 10 mg PO DAILY Eliquis 5 mg tablet 5 mg PO BID metformin 500 mg tablet 1,000 mg PO BID loratadine 10 mg tablet 10 mg PO DAILY Patient Comments: TAKE 1 TABLET BY MOUTH ONCE DAILY metoprolol succinate 50 mg tablet extended release 24 hr 25 mg PO DAILY HPI General Date/Time Provider Initiated Documentation: 07/13/24 12:38 . HPI Narrative: MDM This is a normothermic and not tachycardic diabetic 78-year-old male with CKD found to have left foot second toe ulcer concerning for the possibility of osteomyelitis for which patient will undergo x-ray and MRI. No pain out of proportion to suggest necrotizing soft tissue infection. Patient foot warm well-perfused and given his CKD we will defer CT angiogram with runoffs at this point in time. Will order blood cultures given patient will be followed by podiatry as has in touch with Dr. Baird. I considered sepsis however the patient is not tachycardic nor febrile so I did not treat empirically with antibiotics nor check a lactate. Given warm well-perfused foot and not concern for critical limb ischemia. No ankle swelling to suggest septic arthritis. No trauma to foot doubt fracture. I was in touch with Dr. Baird from podiatry who advised MRI which I ordered. 4:50 PM I spoke with Dr. Baird from podiatry who had seen the patient in the ED. She advised MRI which was ordered. MRI is not yet resulted. Plan will be if MRI is positive for osteomyelitis to attempt transfer [place] [facility] [place] his [place]. If [facility] [place] at capacity or declines the patient will attempt local hospitalization as Dr. Baird is able to evaluate the patient tomorrow. The patient is not amenable to local hospitalization patient will need to be signed out AGAINST MEDICAL ADVICE on amoxicillin clavulanic acid. Have not yet ordered antibiotics. I signed out patient to Dr. Garrison. HPI This is a 78-year-old [id number]-[id number] diabetic with an A1c of 8-1/2%. Emergency department via private vehicle in the setting of left foot ulcers. Patient has a history of remote left fifth toe amputation. Patient notes that 14 days ago he developed blisters on the plantar surfaces of his first and second toes. Over the past several days he has noticed worsening redness swelling to the base of his left second toe. He has not recently been on antibiotics. He has been doing dressing changes. He follows [place] clinic [place] [facility] He has remote history of osteomyelitis. He does not recall any recent vascular imaging that notes family history of peripheral vascular disease. He also has history of CKD. He rarely drinks ethanol uses cannabis but denies tobacco use. No fevers nausea vomiting chest pain or shortness of breath. Exam General: Well-appearing in no acute distress speaking in complete sentences. Head: Normocephalic, atraumatic. Eye: Extraocular eye movements intact. No conjunctival injection. No scleral icterus. Ear, nose, mouth, throat: Grossly normal inspection. Normal voice, handling secretions normally. Neck: Trachea midline. Cardiovascular: Well-perfused distal extremities. Respiratory: Nonlabored respiration. Gastrointestinal: Nondistended abdomen. Musculoskeletal: No edema. Moving all 4 extremities spontaneously. Skin: Left foot warm well-perfused with intact PT and DP pulses. Cap refill less than 2 seconds left toes. As shown in the photos below there is an ulcerated area on the dorsal surface of the left lateral second toe. There is also surrounding erythema and swelling. On the plantar surfaces of the left first and second toes there are also approximately 1 cm diameter ulcers. No purulent drainage. No foul-smelling drainage. Neurologic: Alert and appropriate, no apparent acute deficits. Psychiatric: Mood and manner are appropriate. Grooming and personal hygiene are appropriate. Related Data Home Medications ?Medication ?Instructions ?Recorded ?Confirmed apixaban 5 mg tablet (Eliquis) 5 mg PO BID 11/13/23 07/13/24 amlodipine 5 mg tablet 5 mg PO DAILY 11/19/23 07/13/24 losartan 25 mg tablet 25 mg PO DAILY 11/19/23 07/13/24 metformin 500 mg tablet 1,000 mg PO BID 11/19/23 07/13/24 empagliflozin 10 mg tablet 10 mg PO DAILY 04/06/24 07/13/24 (Jardiance) furosemide 20 mg tablet 20 mg PO DAILY 04/06/24 07/13/24 loratadine 10 mg tablet 10 mg PO DAILY 07/13/24 07/13/24 metoprolol succinate 50 mg 25 mg PO DAILY 07/13/24 07/13/24 tablet,extended release 24 hr Allergies Allergy/AdvReac Type Severity Reaction Status Date / Time ether Allergy Unknown Anaphylaxsi Verified 07/13/24 12:42 s Penicillins Allergy Unknown Other (See Verified 07/13/24 12:42 Comment) General NASREEN: 4 Medical Decision Making Quality:SDOH Health Related Social Needs: 2 No Data to Display PFSH All Active Problems (Updated 07/13/24 @ 14:42 by Jemma Wilson DPM) Ulcer of left foot with fat layer exposed (Acute) Cellulitis (Acute) Atrial flutter (Acute) CKD (chronic kidney disease) stage 3, GFR 30-59 ml/min (Acute) PMR (polymyalgia rheumatica) (Acute) Obesity (BMI 30-39.9) (Acute) Hypertension (Chronic) Diabetes (Chronic) Medical History 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
--- NOTE | 2024-07-13 12:45 | DI.RAD_ITS ---
Exam(s) XR FOOT LT COMPLETE EXAM: XR FOOT LT COMPLETE CLINICAL HISTORY: Second toe ulcer erythema. TECHNIQUE: 2D digital imaging was performed of the left foot. Three images were obtained. AP, obli que and lateral views were obtained. COMPARISON: No exams were available for comparison FINDINGS: BONES: No acute fracture is present. No bony destructive lesion is seen. A prior amputation of the 5t h toe to the level of the mid 5th metatarsal. There is an enthesophyte at the posterior calcaneus. There is a plantar calcaneal spur. Dystrophic calcifications are seen in the soft tissues. Surgical clips are seen in the posterior ankle. JOINTS: No dislocation present. Degenerative changes are seen throughout the foot. SOFT TISSUE: There is mild soft tissue swelling of the foot. No soft tissue gas is appreciated. IMPRESSION: No radiographic evidence to suggest acute osteomyelitis of the 2nd toe. DATA REPOSITORY: RADIATION DOSE DELIVERED:
--- NOTE | 2024-07-13 13:06 | DI.MRI_ITS ---
Exam(s) MR LOWER EXTREMITY LT WO/W EXAM: MR LOWER EXTREMITY LT WO/W CLINICAL HISTORY: For second toe ulcers. TECHNIQUE: Multiplanar multisequence MRI was performed. CONTRAST MATERIAL: IV Contrast: 20 mL of Dotarem contrast administered. COMPARISON: CR XR FOOT LT COMPLETE from 07/13/2024 FINDINGS: BONES/JOINTS: No evidence of fracture. In the 2nd toe there is hyperintense signal seen on the T2 arlette ghted images. There is normal signal seen on the T1 weighted images. The findings are most suggesti ve of reactive marrow. There is no disruption of the cortex. No findings to suggest osteomyelitis i nvolving the 2nd toe are noted. There has been a prior amputation of the 5th toe to the level of the mid 5th metatarsal. There is normal T1 signal in the remaining 5th metatarsal bone in the remainder of the 5th metatarsal bone. There is mild hyperintense signal seen in the base of the 5th metatarsa l bone which is likely reactive. No findings to suggest osteomyelitis. There are mild degenerative changes present. LIGAMENTS: Unremarkable. MUSCULOTENDINOUS STRUCTURES: Visualized portion of the planar fascia is unremarkable. The visualized intrinsic muscles and tendons of the foot are unremarkable. SOFT TISSUES: There is mild edema seen in the soft tissues of the 2nd toe. No focal fluid collection is seen to suggest an abscess. ENHANCEMENT: There is a peripherally enhancing fluid collection in the soft tissues on the plantar downing rface of the foot measuring 2.4 x 1.4 cm. It lies superficial to the 5th metatarsal. OTHER FINDINGS: None. IMPRESSION: 1. There is hyperintense T2 signal in the distal phalanx of the 2nd toe without corresponding abnorma l T1 signal suggestive of reactive marrow with no evidence for osteomyelitis. 2. 2.4 x 1.4 cm peripherally enhancing fluid collection in the soft tissues on the plantar surface of the foot overlying the 5th metatarsal. An abscess cannot be excluded. 3. Hyperintense T2 signal in the base of the 5th metatarsal bone without corresponding abnormal T1 si gnal suggestive of reactive marrow. No evidence of osteomyelitis is seen at this time. 4. Soft tissue edema seen in the 2nd toe without focal fluid collection to suggest abscess. DATA REPOSITORY:
[2024-07-13 13:19] LABS: Abs Immature Grans 0.05 10^3/uL (0.0-0.06); Absolute Basophil Count 0.05 10^3/uL (0.0-0.2); Absolute Eosinophil Count 0.12 10^3/uL (0.0-0.7); Absolute Lymphocyte Count 2.65 10^3/uL (1.2-3.4); Absolute Monocyte Count 0.53 10^3/uL (0.1-0.8); Absolute Neutrophil Count 3.29 10^3/uL (1.2-6.7); Basophils % 0.7 %; Eosinophils % 1.8 %; HGB 13.9 g/dL (13.5-17.5); Immature Grans % 0.7 %; Lymphocytes % 39.6 %; MCH 28.8 pg (27.0-33.0); MCHC 32.3 % (32.0-36.0); MCV 89 fL (80-95); MPV 10.1 fL (8.0-11.0); Monocytes % 7.9 %; Neutrophils % 49.3 %; Platelet Count 291 10^3/uL (130-400); RBC 4.82 10^6/uL (4.36-5.78); RDW 13.5 % (11.8-14.1); RDW-SD 44.2 fL; WBC 6.69 10^3/uL (4.4-10.8)
[2024-07-13 13:26] LABS: ESR 25 mm/hr (0-20)
[2024-07-13 13:34] LABS: Anion Gap 10.5 mmol/L (3-11); BUN 22 mg/dL (7-18); C-Reactive Protein 1.63 mg/dL (<or=0.5); CO2 26.5 mmol/L (21.0-32.0); CREATININE 1.7 mg/dL (0.70-1.30); Calcium 9.6 mg/dL (8.5-10.1); Chloride 102 mmol/L (98-107); Estimated GFR 41.26 (mL/min/1.73m2); Glucose 184 mg/dL (74-106); Potassium 4.2 mmol/L (3.5-5.1); Sodium 139 mmol/L (136-145)
[2024-07-13 13:44] VITALS: BP 145/63; O2SAT 98
--- NOTE | 2024-07-13 14:38 | POCOE_ITS ---
Date of service: 07/13/24 Time of Service: 14:00 Assessment and Plan Assessment and plan (1) Cellulitis: Status: Acute (2) Ulcer of left foot with fat layer exposed: Status: Acute (3) CKD (chronic kidney disease) stage 3, GFR 30-59 ml/min: Status: Acute (4) Atrial flutter: Status: Acute (5) Diabetes: Status: Chronic (6) Obesity (BMI 30-39.9): Status: Acute Assessment and plan: Patient was seen bedside today. Chart was reviewed. Labs were reviewed today. White count noted to be within normal limits however, CRP is elevated 1.63, ESR noted to be 25. Patient currently has an ulcer to the dorsal lateral and the tip of the left second toe with the periwound erythema. This is concerning for an infection as well as cellulitis. Underlying osteomyelitis cannot be ruled out at this time. X-rays were independently reviewed today. Noted to be with partial fifth ray amputation to the left foot. No evidence for periosteal reaction concerning for osteomyelitis to the second toe noted at this time. There appeared to be skin josé laterally as well as calcifications noted to the plantar fascia, enthesopathy noted to the plantar and posterior calcaneal tuberosity. Some navicular cuneiform joint collapse noted with widening of the joint space plantarly. He will benefit from an MRI to see if there is any early infection to the bone. MRI reports pending. Patient would like to follow-up at [facility] [place] since he has been going there for years and states that they have done a thorough workup on his feet and have extensive history. That is okay as long as the patient follows up as scheduled. If he does have evidence for osteomyelitis to the bone today as per MRI, I would then recommend admission for IV antibiotics and possible amputation of the second toe depending on the severity of the infection. Otherwise, I recommend p.o. antibiotics. Patient to follow-up with [facility] as scheduled. History of Present Illness Narrative: This is a 78-year-old diabetic male patient with CKD seen in the ER for left second toe blister and redness. He states that he noticed a blister on June 29. States that these past 2 days he has noticed swelling, pain however no drainage. Denies nausea, vomiting, chills fever diarrhea. Does report history of recurrent ulcers which she goes to [facility] for. Does report history of left fifth toe amputation. Does report history of healed amputation to the right foot as well. States that his current A1c is 8.5. No other pedal complaints does report numbness to the toes Consults Consult date: 07/13/24 Requesting physician: Abner Styles Review of Systems Constitutional Constitutional: Denies chills, Denies fever(s) and Denies night sweats Cardiovascular Cardiovascular: Reports pedal edema Musculoskeletal Musculoskeletal: Reports numbness Neurologic Neurologic: Reports numbness PFSH All Active Problems (Updated 07/13/24 @ 18:03 by Anton Garrison MD) Ulcer of left foot with fat layer exposed (Acute) Cellulitis (Acute) Atrial flutter (Acute) CKD (chronic kidney disease) stage 3, GFR 30-59 ml/min (Acute) PMR (polymyalgia rheumatica) (Acute) Obesity (BMI 30-39.9) (Acute) Hypertension (Chronic) Diabetes (Chronic) Medical History 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 No crepitus no fluctuance no bogginess some drainage noted. Skin is otherwise warm, dry and supple without any other ulcers. Vascular: DP, PT pulses are palpable to the left lower extremity. There is swelling noted to the left leg extremity. MSK: Status post heel amputation to the left fifth toe. Neuro: Light touch sensation absent to the left foot Results Last Vital Signs Temp 98.5 F 07/13/24 12:35 Pulse 85 07/13/24 12:35 Resp 16 07/13/24 12:35 BP 145/63 H 07/13/24 13:44 Pulse Ox 98 07/13/24 13:44 Labs 07/13/24 13:10 07/13/24 13:10 Labs: Laboratory Results - last 24 hr 07/13/24 13:10 WBC 6.69 RBC 4.82 Hgb 13.9 Hct 43.0 MCV 89 MCH 28.8 MCHC 32.3 RDW 13.5 Plt Count 291 MPV 10.1 Immature Gran % 0.7 Neutrophils % 49.3 Lymphocytes % 39.6 Monocytes % 7.9 Eosinophils % 1.8 Basophils % 0.7 Nucleated RBC % 0.0 Absolute Neutrophils 3.29 Absolute Lymphocytes 2.65 Absolute Monocytes 0.53 Absolute Eosinophils 0.12 Absolute Basophils 0.05 ESR 25 H Sodium 139 Potassium 4.2 Chloride 102 Carbon Dioxide 26.5 Anion Gap 10.5 BUN 22 H Creatinine 1.7 H Est GFR (CKD-EPI 2020) 41.26 Glucose 184 H Calcium 9.6 C-Reactive Protein 1.63 H
[2024-07-13 15:00] VITALS: BP 138/80; PULSE 82; O2SAT 98
[2024-07-13] MEDS: Gadoterate meglumine 20 ML SYRINGE IVP (15:12)
[2024-07-13] MEDS: Normal Saline Flush 10 ML SYR IVP (15:13)
--- NOTE | 2024-07-13 16:34 | DI.VRAD_ITS ---
PROCEDURE INFORMATION: Exam: MR Left Lower Extremity Without and With Contrast; Forefoot Exam date and time: 07/13/2024 3:07 PM Age: 78 years old Clinical indication: Pain; Toes; Left; 2nd toe ulcer at the tip TECHNIQUE: Imaging protocol: MR of the left foot without and with contrast. Exam focused on the forefoot. Contrast material: DOTAREM; Contrast volume: 20 ml; Contrast route: INTRAVENOUS (IV); COMPARISON: CR XR FOOT LT COMPLETE 07/13/2024 4:05 PM (report not provided) FINDINGS: Bones/joints: The 5th ray has again been amputated from the level of the mid metatarsal shaft. There is again modeling deformity of the 5th metatarsal proximal to this. It is with mild marrow edema, without significant decreased T1 signal or definite acute cortical destruction to suggest osteomyelitis. The joint spaces are normally aligned. Small effusions involve the 1st through 4th metatarsophalangeal joints. Joint fluid is otherwise within physiologic limits. 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 Moderate marrow edema involves the 2nd distal phalanx. This is not associated with significantly decreased T1 signal or cortical disruption to indicate osteomyelitis, and appears to be reactive. There is no evidence for osteomyelitis elsewhere. Mild degenerative changes are present. LIGAMENTS: Collateral ligaments of digits: Unremarkable. No evidence of tear. TENDONS: Flexor tendons of foot: Unremarkable. No evidence of tear. Extensor tendons of foot: Unremarkable. No evidence of tear. Soft tissues: There is mild to moderate subcutaneous soft tissue edema dorsally over the visualized midfoot, with variable circumferential extension into the toes, most markedly the 2nd toe. No discrete collection to suggest abscess is identified. IMPRESSION: 1. Soft tissue edema about the portions of the visualized midfoot and forefoot as described, with most pronounced involvement of the 2nd toe, without discrete abscess identified. 2. Mild reactive appearing marrow edema involving the 2nd distal phalanx, without evidence for osteomyelitis here or elsewhere. 3. Additional mild marrow edema at the residual base of the postoperative 5th metatarsal, also appears reactive. 4. Small nonspecific effusions of the 1st through 4th metatarsophalangeal joints. 5. Mild degenerative changes. Dictated and Authenticated by: Eligio Olmstead MD. Orderin Jensen Levine MD
[2024-07-13 17:15] VITALS: BP 148/63; PULSE 78
--- NOTE | 2024-07-13 18:08 | W.EDPROG ---
Date of service: 07/13/24 Time of Service: 18:08 Medical Decision Making Care assumed from off going provider. Patient was pending workup for diabetic foot wound. Workup was pending MRI. The patient did get his MRI and I reviewed the V rad report. This did not reveal acute osteomyelitis. Therefore the patient will be discharged with Augmentin. He has an unknown allergy to penicillin but seems to be able to tolerate it and Augmentin was sent to his pharmacy. He was encouraged to follow-up with [facility]. At the time of discharge, the patient was fairly belligerent, repeatedly coming out of his room into the physician station as well as into the nursing station to yell at everyone that he is being held as a prisoner and that if we do not discharge him immediately he will leave with his IV. Patient had been calmly updated multiple times regarding his nonemergent MRI that was performed while in the emergency department and hit the extensive workup that he has received. He is stable for discharge at this time Quality:SDOH Health Related Social Needs: No Data to Display Discharge Plan Disposition Patient Disposition: Home Condition: Stable Discharge Details Clinical Impression: Cellulitis, Diabetes Primary Care Provider: Unknown,Unknown ED Provider: Anton Garrison Home Meds and New Rx's Prescriptions: New amoxicillin-pot clavulanate 875-125 mg tablet 1 tab PO BID 7 Days Qty: 14 0RF No Action losartan 25 mg tablet 25 mg PO DAILY amlodipine 5 mg tablet 5 mg PO DAILY furosemide 20 mg tablet 20 mg PO DAILY Jardiance 10 mg tablet 10 mg PO DAILY Eliquis 5 mg tablet 5 mg PO BID metformin 500 mg tablet 1,000 mg PO BID loratadine 10 mg tablet 10 mg PO DAILY Patient Comments: TAKE 1 TABLET BY MOUTH ONCE DAILY metoprolol succinate 50 mg tablet extended release 24 hr 25 mg PO DAILY Discharge Instructions Additional Instructions: please follow up with wound care at [facility] or podiatry clinic at [facility] antibiotics have been sent to your pharmacy
[2024-07-13 18:14] VITALS: BP 142/63; PULSE 70; RESP 16; O2SAT 100
== END 2024-07-13 18:14 | disposition home or self-care (01) ==
PROVIDERS: Emergency Medicine; Emergency Provider Emergency Medicine
DX: L03.90 Cellulitis, unspecified (principal); L97.522 Non-pressure chronic ulcer of other part of left foot with fat layer exposed; N18.30 Chronic kidney disease, stage 3 unspecified; I48.3 Typical atrial flutter; E11.9 Type 2 diabetes mellitus without complications; E66.9 Obesity, unspecified
CPT/HCPCS: 00123; 36415; 80048; 85652; 87040; 96374; 99284; 99285; 73630; 73720; 85025; 86140